=== PATIENT | female | born 1950 | race Caucasian/White ===

== ENCOUNTER → 2017-03-01 | Outpatient (CLI) | payer OTHER ==
--- NOTE | 2017-03-01 13:57 | KCIC ---
Bone mineral density exam History: Osteopenia, postmenopausal Comparison: None Findings: Bone mineral density examination utilizing DEXA was performed. Left hip bone mineral density of 0.809 g/cm2 corresponds with a T score -1.1, Z score 0.1. The bone mineral density of the lumbar spine was 0.954 g/cm2 which corresponds with a T-score of -0.8, Z score 0.9. By World [employer] on Osteoporosis criteria, a T score of 0 to-1 SD is considered to be within normal limits. A T score of -1 to -2.5 SD is considered osteopenia. A T score less than -2.5 SD is considered osteoporosis Impression: 1. There is osteopenia of the left hip. Bone mineral density of the lumbar spine is within normal limits. Electronically signed by: Rodney Franklin MD (03/01/2017 1:54 PM) [email or web address]
== END | disposition home or self-care (01) ==
LOC: KCIC DEXA 13:14
PROVIDERS: ATTEND Physician Assistant Medical
DX: M85.88 Other specified disorders of bone density and structure, other site (principal)
CPT/HCPCS: 77080

== ENCOUNTER → 2019-09-05 | Outpatient (CLI) | payer MEDICARE, OTHER ==
--- NOTE | 2019-09-05 14:38 | KCIC ---
MR of the right ankle HISTORY: Talus fracture. Injury after recent fall. TECHNIQUE: Routine multiplanar sequences are obtained. FINDINGS: Subcortical marrow signal change with edema at the calcaneal tuberosity superiorly, with heterogeneous T1 signal, compatible with nondisplaced fractures. Subchondral and subcortical marrow signal change of the distal talus, greater medially, with some low T1 signal also suspicious for nondisplaced microfractures. Subchondral marrow edema at the calcaneocuboid joint, likely marrow contusions. There may also be a small nondisplaced fractures of the superior cuboid and anterior process of the calcaneus. Peroneal tendons are intact. Anterior talofibular ligament, is poorly defined with some edema here, compatible with a high-grade tear or rupture. Calcaneofibular ligament demonstrates sprain or partial tearing. Mild posterior talofibular ligament sprain. Tibiofibular syndesmotic ligaments are intact. Posterior tibial and flexor tendons are intact. No acute medial ligamentous tear. Anterior tibial and extensor tendons are intact. Achilles tendon intact. No evidence of acute plantar fasciitis. Subtalar joints are patent. Tarsal sinus intact. Subchondral marrow signal changes at the medial talar dome appears mostly cystic, with mild irregularity of the subchondral bone, likely due to old trauma. This could also be due to an old healed osteochondral lesion but no unstable osteochondral fragment is seen. No large joint effusion. IMPRESSION: 1. Areas of patchy nondisplaced fractures or microfractures at the talus, calcaneus and proximal cuboid. 2. Anterior talofibular ligament tear, with milder sprain or partial tear of calcaneofibular and posterior talofibular ligament. Electronically signed by: Jimi Medina MD (09/05/2019 2:35 PM) [place] [id number]
== END | disposition home or self-care (01) ==
LOC: KCIC MRI 12:12
PROVIDERS: ATTEND Podiatrist Foot & Ankle Surgery
DX: S92.191A Other fracture of right talus, initial encounter for closed fracture (principal); S92.214A Nondisplaced fracture of cuboid bone of right foot, initial encounter for closed fracture; S92.024A Nondisplaced fracture of anterior process of right calcaneus, initial encounter for closed fracture; S93.491A Sprain of other ligament of right ankle, initial encounter; W19.XXXA Unspecified fall, initial encounter; Y93.89 Activity, other specified; Y92.89 Other specified places as the place of occurrence of the external cause; Y99.8 Other external cause status
CPT/HCPCS: 73721

== ENCOUNTER → 2020-10-07 | Outpatient (CLI) | payer MEDICARE, OTHER ==
--- NOTE | 2020-10-08 06:46 | KCIC ---
DXA BONE DENSITY AXIAL History: Reason: OSTEOPENIA / Spl. Instructions: / History: Postmenopausal Comparison: March 01, 2017 TECHNIQUE: Dual energy x-ray absorptiometry of the lumbar spine and left hip was performed. T-score o f average bone mineral density based was calculated based on standard deviations above or below the e xpected young adult normal value. Diagnostic definitions were established by the [employer] ation. FINDINGS: The average bone mineral density associated with L1-L4 is 0.908 g/cm^2, corresponding with a T-score of -1.3. Decreased bone mineral density compared to prior. The average total bone mineral density associated with left hip is 0.812 g/cm^2, corresponding with a T-score of -1.1. Stable bilateral density compared to prior. Refer to the worksheets for full detail. IMPRESSION: 1. Osteopenia according to the lumbar spine and left hip. 2. Decreased bone mineral density within the lumbar spine compared to prior. Electronically signed by: Jae Cronin DO (10/08/2020 6:44 AM) [facility]
== END ==
LOC: KCIC DEXA 12:19
PROVIDERS: ATTEND Physician Assistant Medical
DX: M85.88 Other specified disorders of bone density and structure, other site (principal)
CPT/HCPCS: 77080